=== PATIENT | male | born 1965 | race Caucasian/White ===

== ENCOUNTER 2016-08-06 19:58 | Emergency (ER) | payer OTHER ==
[2016-08-06] MEDS ORDERED: NS 500 ML IV ONE (20:11)
--- NOTE | 2016-08-06 20:13 | EDPHY ---
H & P Stated Complaint: new onset Afib @[facility], irregular HR, BP, "heart fluttering" ( resolved?) Time Seen by Provider: 08/06/16 20:11 - Personal History Current Tetanus/Diphtheria Vaccine: Yes Current Tetanus Diphtheria and Acellular Pertussis (TDAP): Yes - Medical/Surgical History Hx Asthma: No Hx Chronic Respiratory Disease: No Hx Diabetes: No Hx Cardiac Disease: No Hx Renal Disease: No Hx Cirrhosis: No Hx Alcoholism: No Hx HIV/AIDS: No Hx Splenectomy or Spleen Trauma: No Other PMH: HTN - Social History Smoking Status: Never smoked Constitutional: Initial Vital Signs Temperature (C) 36.8 C 08/06/16 20:01 Heart Rate 91 08/06/16 20:01 Respiratory Rate 16 08/06/16 20:01 Blood Pressure 131/73 H 08/06/16 20:01 O2 Sat (%) 99 08/06/16 20:01 O2 Delivery Mode Room Air Allergies/Adverse Reactions: No Known Allergies Allergy (Unverified 08/06/16 20:05) Home Medications: Medication Instructions Recorded Lisinopril 08/06/16 Medical Decision Making ED Course/Re-evaluation: CHIEF COMPLAINT: New onset atrial fibrillation HISTORY OF PRESENT ILLNESS: This patient is a 50 year old male who presents to the Emergency Department with new-onset atrial fibrillation confirmed on long chain quiller tender when seen at the Urgent Care [facility] today. He reports that he took his home monitor blood pressure this morning and it was elevated, prompting his to check his pulse which was irregular at that time. He describes a mild feeling of chest fluttering throughout today but is unsure when it started. Upon arrival, he has no complaints. Denies chest pain or lightheadedness. Medical history includes hypertension. REVIEW OF SYSTEMS: A 10 point review of systems was performed and is negative with the exception of the elements mentioned in the history of present illness. PHYSICAL EXAM: HR 91, BP 131/73, O2 Sat, 99% RR 16. Temp noted General Appearance: Alert, well hydrated, appropriate, and non-toxic appearing. Head: Atraumatic without scalp tenderness or obvious injury Eyes: Pupils equal, round, reactive to light and accommodation, EOMI, no trauma , no injection. Ears: Clear bilaterally, no perforation, normal landmarks Nose: Atraumatic, no rhinorrhea, clear. Throat: There is no erythema or exudates, no lesions, normal tonsils, mucus membranes moist. Neck: Supple, 2+ carotid upstroke, nontender, no lymphadenopathy. Respiratory: No retractions, no distress, no wheezes, and no accessory muscle use. Lungs are clear to auscultation bilaterally. Cardiovascular: Irregularly irregular with no murmurs, rubs, or gallops. Bilateral carotid, radial, dorsalis pedis, and posterior tibial pulses intact. Good capillary refill all extremities. Gastrointestinal: Abdomen is soft, nontender, non-distended, no masses, no rebound, no guarding, no peritoneal signs. Musculoskeletal: Normal active ROM of all extremities, atraumatic. Neurological: Alert, appropriate, and interactive. The patient has normal DTRs and non-focal cranial nerves, motor, sensory, and cerebellar exam. Skin: No rashes, good turgor, no nodules on palpation. Past medical history: Hypertension. Past surgical history: Denies. Family history: Father with CAD and CABG. Mother with cardiac stenting. Social history: ; is a RN. DIAGNOSTICS/PROCEDURES/CRITICAL CARE TIME: The 12 lead EKG was interpreted by myself: atrial fibrillation with ventricular rate 61-176; multiple premature complexes, ventricular and supraventricular. See hard copy and/or "tracemaster" electronic copy for interpretation. DIFFERENTIAL DIAGNOSIS: Differential diagnosis for the patient's chest flutter includes but is not limited to: arrhythmia, myocardial ischemia, or pleural inflammation. MEDICAL DECISION MAKING: This patient is a normally healthy 50 year old male who presents with new onset atrial fibrillation as confirmed on monitor at Urgent Care and here in the ED. He reports mild chest flutter but has no other complaints. Familial history is significant for CAD in mother and father. On exam, he is irregularly irregular with no murmurs, rubs, or gallops. EKG confirmed atrial fibrillation with variable ventricular rate. Will proceed with labs, consultation with cardiology, and echocardiogram prior to cardioversion given that the onset of the patient's atrial fibrillation is unknown. IV established. 500ml IV NS administered. 2020: Consultation with Dr. Jovany Mao, cardiology, who recommends the patient be administered dose of 150mg Pradaxa and 50mg PO Metoprolol. If he remains asymptomatic in the ED, Dr. Mao will treat him as an outpatient in his office tomorrow morning. I discussed this plan with the patient who is agreeable to this. Labs obtained: Chemistries are within normal ranges. Troponin is negative. NT- proBNP is mildly elevated at 652. 2129: The patient's remains in atrial fibrillation with rate improved to 90- 100. He continues to deny any symptoms. He is not short of breath, he has no chest pain. He reports no complaints. He will be road tested and sent home with instructions to follow-up with Dr. Mao tomorrow without fail. He understands that he should return to the Emergency Department immediately should he develop any symptoms of dyspnea, chest pain, diaphoresis, nausea, lightheadedness, or syncope. - Data Points Laboratory Results: Laboratory Results 08/06/16 20:30 08/06/16 20:30 08/06/16 08/06/16 20:30 20:30 WBC 6.84 10^3/uL 10^3/uL (3.80-9.50) RBC 5.25 10^6/uL 10^6/uL (4.40-6.38) Hgb 17.0 g/dL g/dL (13.7-17.5) Hct 48.7 % % (40.0-51.0) MCV 92.8 fL fL (81.5-99.8) MCH 32.4 pg pg (27.9-34.1) MCHC 34.9 g/dL g/dL (32.4-36.7) RDW 11.4 % L % (11.5-15.2) Plt Count 229 10^3/uL 10^3/uL (150-400) MPV 11.2 fL fL (8.7-11.7) Neut % (Auto) 52.7 % % (39.3-74.2) Lymph % (Auto) 38.6 % % (15.0-45.0) [place] % (Auto) 6.1 % % (4.5-13.0) Eos % (Auto) 1.6 % % (0.6-7.6) Baso % (Auto) 0.7 % % (0.3-1.7) Nucleat RBC Rel Count 0.0 % % (0.0-0.2) Absolute Neuts (auto) 3.60 10^3/uL 10^3/uL (1.70-6.50) Absolute Lymphs (auto) 2.64 10^3/uL 10^3/uL (1.00-3.00) Absolute Monos (auto) 0.42 10^3/uL 10^3/uL (0.30-0.80) Absolute Eos (auto) 0.11 10^3/uL 10^3/uL (0.03-0.40) Absolute Basos (auto) 0.05 10^3/uL 10^3/uL (0.02-0.10) Absolute Nucleated RBC 0.00 10^3/uL 10^3/uL (0-0.01) Immature Gran % 0.3 % % (0.0-1.1) Immature Gran # 0.02 10^3/uL 10^3/uL (0.00-0.10) Sodium 136 mEq/L mEq/L (134-144) Potassium 4.6 mEq/L mEq/L (3.5-5.2) Chloride 100 mEq/L mEq/L (97-110) Carbon Dioxide 24 mEq/l mEq/l (22-31) Anion Gap 12 mEq/L mEq/L (8-16) BUN 22 mg/dL mg/dL (7-23) Creatinine 1.0 mg/dL mg/dL (0.7-1.3) Estimated GFR > 60 Glucose 97 mg/dL mg/dL (70-100) Calcium 10.1 mg/dL mg/dL (8.5-10.4) Magnesium 2.0 mg/dL mg/dL (1.6-2.3) Troponin I < 0.012 ng/mL ng/mL (0-0.034) NT-Pro-B Natriuret Pep 652 pg/mL H pg/mL (0-125) Medications Given: Discontinued Medications Dabigatran (Pradaxa) 150 mg PO EDNOW ONE Stop: 08/06/16 20:23 Last Admin: 08/06/16 21:05 Dose: 150 mg Sodium Chloride (Ns) 500 mls @ 0 mls/hr IV ONCE ONE PRN Reason: As Directed Stop: 08/06/16 20:12 Last Admin: 08/06/16 20:30 Dose: 500 mls Metoprolol Succinate (Toprol Xl) 50 mg PO EDNOW ONE Stop: 08/06/16 20:25 Last Admin: 08/06/16 21:05 Dose: 25 mg Metoprolol Tartrate (Lopressor Injection) 5 mg IVP EDNOW ONE Stop: 08/06/16 20:50 Last Admin: 08/06/16 20:50 Dose: 5 mg Departure - Departure Disposition: Home, Routine, Self-Care Clinical Impression: New onset atrial fibrillation Condition: Good Instructions: A-fib (Atrial Fibrillation) (ED) Additional Instructions: 1. Follow-up with Dr. Gabriel Mao, cardiology, first thing tomorrow morning. He is aware of your case and has advised us on your treatment plan. 2. Return to the Emergency Department immediately if you experience chest pain, lightheadedness, feeling as though you may pass out, nausea or vomiting, excessive sweating, or for other serious concerns. Referrals: Jovany Mao MD [Medical Doctor] - As per Instructions Report Scribed for: Griffin Bai Report Scribed by: Pallavi Nicole Date of Report: 08/06/16 Time of Report: 20:13
--- NOTE | 2016-08-06 20:17 | CPEKG ---
Heart Rate: 128 RR Interval: 469 QRSD Interval: 80 QT Interval: 296 QTC Interval: 432 QRS [place]: 18 T Wave [place]: 20 EKG Severity - ABNORMAL ECG - EKG Impression: ATRIAL FIBRILLATION, V-RATE 61-176 Electronically Signed By: Griffin Bai 06-Aug-2016 22:18:22
[2016-08-06] MEDS ORDERED: DABIGATRAN ETEXILATE MESYL 150 MG CAP PO ONE (20:22)
[2016-08-06] MEDS ORDERED: METOPROLOL SUCCINATE XR 25 MG TAB PO ONE (20:24)
[2016-08-06 20:41] LABS: % IMMATURE GRANULYOCYTES 0.3 % (0.0-1.1); ABSOLUTE IMMATURE GRANULOCYTES 0.02 10^3/uL (0.00-0.10); ADD DIFF? NO; ADD MORPH? NO; ADD SCAN? NO; ATYPICAL LYMPHOCYTE FLAG 10 (0-99); FRAGMENT RBC FLAG 0 (0-99); HEMATOCRIT 48.7 % (40.0-51.0); LEFT SHIFT FLG 0 (0-99); LIPEMIA HEMOLYSIS FLAG 90 (0-99); MEAN CELL HEMOGLOBIN 32.4 pg (27.9-34.1); MEAN CELL HEMOGLOBIN CONCENTR. 34.9 g/dL (32.4-36.7); MEAN CELL VOLUME 92.8 fL (81.5-99.8); MEAN PLATELET VOLUME 11.2 fL (8.7-11.7); PLATELET CLUMPS FLAG 0 (0-99); PLATELET COUNT 229 10^3/uL (150-400); RED BLOOD CELL COUNT 5.25 10^6/uL (4.40-6.38); RED CELL DISTRIBUTION WIDTH 11.4 % (11.5-15.2)
[2016-08-06] MEDS ORDERED: METOPROLOL TARTRATE 5 MG/5 ML INJ IVP ONE (20:49)
[2016-08-06] MEDS ORDERED: METOPROLOL TARTRATE 5 MG/5 ML INJ ONE (20:49)
[2016-08-06 21:05] LABS: ANION GAP 12 mEq/L (8-16); CALCIUM 10.1 mg/dL (8.5-10.4); CARBON DIOXIDE 24 mEq/l (22-31); CHLORIDE 100 mEq/L (97-110); GLOMERULAR FILTRATION RATE > 60; GLUCOSE 97 mg/dL (70-100); POTASSIUM 4.6 mEq/L (3.5-5.2); SODIUM 136 mEq/L (134-144)
[2016-08-06 21:07] VITALS: PULSE 89; RESP 18
[2016-08-06 21:34] LABS: TROPONIN I < 0.012 ng/mL (0-0.034)
[2016-08-06 21:54] VITALS: BP 121/85; TEMP 97.9; O2SAT 94
== END 2016-08-06 21:59 | disposition home or self-care (01) ==
DX: I48.91 Unspecified atrial fibrillation (principal); I10 Essential (primary) hypertension
CPT/HCPCS: 96374

== ENCOUNTER 2017-11-02 16:08 | Emergency (ER) | payer OTHER ==
--- NOTE | 2017-11-02 16:33 | EDPHY ---
HPI/HX/ROS/PE/MDM Narrative: CHIEF COMPLAINT: Blurred vision in right eye HISTORY OF PRESENT ILLNESS: The patient is a 51 y/o male with history of atrial fibrillation and hypertension complaining of blurred vision in his right eye. Last night he was at a wedding in [place] and reports his eye felt normal. This morning, when he awoke his right eye felt "weird". Denies a foreign body sensation but notes blurred vision. Has been suffering from allergies and rubbing his eyes alot. He did drink alcohol last night. He flew back here and called Dr. Henderson, training and development rep, who advised him come to the ED. He denies any crusting or discharge from the eye, a sensation of a curtain falling over his eye, any flashes in the eye, any waves across his vision, getting anything in the eye, nausea, or any other symptoms. He had his vision check last year and it was borderline for needing reading glasses. He reports he was in [place] for a few weeks before going to [place]. No fever, chills, chest pain, shortness of breath, palpitations, vomiting, diarrhea, urinary complaints, headache, lightheadedness. REVIEW OF SYSTEMS: Aside from elements discussed in the HPI, a comprehensive 10-point review of systems was reviewed and is negative. PAST MEDICAL HISTORY: Atrial fibrillation, hypertension SOCIAL HISTORY: Lives in [place], , [facility] [employer] VITAL SIGNS: Reviewed by me Visual Acuity 20/100 in right eye, 20/30 in left eye. GENERAL: Well-developed, well-nourished, resting comfortably in no respiratory distress. Pleasant. HEENT: Atraumatic. EYES: Visual Acuity: noted from Nurse's notes. Focused examination of the right eye. Eyelid: No edema, erythema or swelling. Pupils: 3mm on right, 4mm on left. Round and reactive to light. EOMI Conjunctivae: Mild injection, no discharge. Cornea: Exam with fluroscein shows diffuse uptake across right eye, mild uptake across left eye. Neg sidels sign, no linear abrasions. e Anterior chamber: Normal, no hyphema or hypopyon Skin: No proptosis, no periorbital erythema or swelling, no vesicles. Pressure: 13 in left, 15 in right CARDIAC: Regular rate and rhythm, no rubs, murmurs or gallops. NEURO: Alert and oriented, grossly nonfocal. SKIN: Warm and dry, no rash. PSYCHIATRIC: Normal mentation, no agitation. ED Course: The patient presents with blurred vision in his right eye, acute onset this morning. Due to his hypertension and atrial fibrillation, his training and development rep advised him to come to the ED. On exam, his cornea shows fluorescin uptake on right corneal, slight uptake on left. VIsion diminished in right eye. 5:45 PM - I spoke with Dr. Ortega, ophthalmology, regarding this patient. Suspected diffuse corneal irritation due to rubbing, allergies, and potentially dry eye if he slept with eyes open last night. He advises eye drops and keeping eye closed as much as possible today. If his vision does not improve by morning followup with him. If he shows signs of infection use antibiotic drops and follow up with him. I informed the patient. He agrees to this course of action. MDM: Diff dx considered included corneal abrasion, corneal ulcer, conjunctivitis, lens dislocation, acute retinal artery occlusion, acute retinal vein occlusion, glaucoma, retinal detatchment, viterous hemorrhage. - Data Points Medications Given: Discontinued Medications Ofloxacin (Ocuflox 0.3% Opht Drops Prepack) [facility] Stop: 11/02/17 17:06 Last Admin: 11/02/17 17:26 Dose: 1 btl General Time Seen by Provider: 11/02/17 16:24 Initial Vital Signs: Initial Vital Signs Temperature (C) 36.7 C 11/02/17 16:13 Heart Rate 91 11/02/17 16:13 Respiratory Rate 16 11/02/17 16:13 Blood Pressure 124/98 H 11/02/17 16:13 O2 Sat (%) 95 11/02/17 16:13 O2 Delivery Mode Room Air Allergies/Adverse Reactions: No Known Allergies Allergy (Unverified 11/02/17 16:12) Home Medications: Medication Instructions Recorded Lisinopril 08/06/16 Atorvastatin Calcium 11/02/17 Levothyroxine 11/02/17 Metoprolol Tartrate 11/02/17 Pradaxa 11/02/17 Departure - Departure Disposition: Home, Routine, Self-Care Clinical Impression: Corneal abrasion Qualifiers: Encounter type: initial encounter Laterality: right Qualified Code(s): S05.01XA - Injury of conjunctiva and corneal abrasion without foreign body, right eye, initial encounter Corneal injury Qualifiers: Encounter type: initial encounter Laterality: right Qualified Code(s): S05.8X1A - Other injuries of right eye and orbit, initial encounter Condition: Good Instructions: Corneal Abrasion (ED) Additional Instructions: 1. Please use artificial tears and use as directed. Keep your eyes closed as much as possible. 2. Please call Dr. Ortega, ophthalmology, tomorrow for a follow-up appointment in 1 to 2 days if your vision does not improve. 3. If your eyes are red or crusted tomorrow, use the antibiotic eye drops as directed and follow up with Dr. Ortega. 4. Return to the emergency department for any worsening of condition. Referrals: Jeanne Ortiz MD [Primary Care Provider] - As per Instructions Khadar Ortega MD [Medical Doctor] - As per Instructions Report Scribed for: Soco Fuentes Report Scribed by: Liv Joseph Date of Report: 11/02/17 Time of Report: 17:04 Physician Review and Approval Statement: Portions of this note were transcribed by a medical office worker. I personally performed a history, physical exam, medical decision making, and confirmed accuracy of information the transcribed note.
[2017-11-02] MEDS ORDERED: OFLOXACIN 0.3% SOLN PREPACK OPHT.BTL TAKEHOME ONE (17:05)
[2017-11-02 17:27] VITALS: BP 123/79
== END 2017-11-02 17:52 | disposition home or self-care (01) ==
DX: H18.891 Other specified disorders of cornea, right eye (principal); I10 Essential (primary) hypertension

== ENCOUNTER → 2018-08-03 | Outpatient (CLI) | payer OTHER ==
[~2018-08-03] MED LIST: IOPAMIDOL (ISOVUE 370) 100 ML BTL IV ONE
== END ==
LOC: FIMAGING 15:45
PROVIDERS: ATTEND Internal Medicine Cardiovascular Disease
DX: Z01.818 Encounter for other preprocedural examination (principal); I48.91 Unspecified atrial fibrillation
CPT/HCPCS: Q9967

== ENCOUNTER 2018-08-11 07:04 | Observation (INO) | payer OTHER ==
[2018-08-11] MEDS ORDERED: NS 1,000 ML IV ONE (07:06)
--- NOTE | 2018-08-11 07:17 | PDGENHP ---
History & Physical Chief Complaint: sx afib Relevant Physical Exam: s1s2. cta. ao3 Cardiorespiratory Assessment: for misty and cb pvi ablation
[2018-08-11] MEDS ORDERED: BUPIVACAINE 0.75% 10 ML SDV ONE (07:18)
[2018-08-11] MEDS ORDERED: IOPAMIDOL (ISOVUE-300) 100 ML BTL ONE ×2 (07:18→12:54)
[2018-08-11] MEDS ORDERED: LIDOCAINE 1% 300 MG/30 ML SDV ONE (07:18)
[2018-08-11] MEDS ORDERED: HEPARIN 10,000 UNIT/10 ML MDV (1,000 UNIT/ML) ONE (07:18)
[2018-08-11] MEDS ORDERED: HEPARIN/DEXTROSE 25,000 UNIT/500 ML BAG ONE (07:18)
[2018-08-11 07:48] LABS: PLATELET COUNT 225 10^3/uL (150-400)
[2018-08-11 08:20] LABS: INR 1.09 (0.83-1.16); PROTIME(PATIENT) 13.7 SEC (12.0-15.0)
[2018-08-11] MEDS ORDERED: PROPOFOL/EMULSION 500 MG/50 ML BOTTLE IV ONE (10:41)
[2018-08-11] MEDS ORDERED: fentaNYL 100 MCG/2 ML INJ ONE (10:41)
[2018-08-11] MEDS ORDERED: MIDAZOLAM 2 MG/2 ML VIAL ONE (10:46)
[2018-08-11] MEDS ORDERED: MIDAZOLAM 2 MG/2 ML VIAL IVP ONE (10:48)
[2018-08-11] MEDS ORDERED: REMIFENTANIL HCL 1 MG VIAL ONE (10:53)
[2018-08-11] MEDS ORDERED: DEXAMETHASONE 4 MG/ML VIAL ONE (10:53)
[2018-08-11] MEDS ORDERED: ROCURONIUM 100 MG/10 ML VIAL ONE (10:53)
[2018-08-11] MEDS ORDERED: ePHEDrine SULFATE 25 MG/5 ML SYR ONE (12:07)
[2018-08-11] MEDS ORDERED: PHENYLEPHRINE HCL 100 MCG/ML SYR ONE (12:07)
[2018-08-11] MEDS ORDERED: PROTAMINE SULFATE 50 MG/5 ML VIAL IVP ONE (12:44)
[2018-08-11] MEDS ORDERED: ONDANSETRON 4 MG/2 ML VIAL ONE (13:40)
--- NOTE | 2018-08-11 13:53 | EPPROC ---
Electrophysiology Procedure Note: ELECTROPHYSIOLOGIC STUDY AND BALLOON-CATHETER MEDIATED CRYOABLATION FOR PAROXYSMAL ATRIAL FIBRILLATION Procedures performed: 90881-59 EP evaluation with RA/RV/LA pace/record, with arrhythmia induction 23664-20 EP evaluation with RA/RV pace record, insert/reposition catheter, with arrhythmia induction 90172 Atrial fibrillation ablation Intracardiac echocardiogram Transseptal puncture Fluoroscopy INDICATION: Paroxysmal atrial fibrillation PROCEDURE: The patient arrived in the Electrophysiology Laboratory in the fasting state. The right groin, left groin and right infraclavicular area were prepped and draped in the usual sterile fashion. Anesthesiologist administered general anesthesia Dr. Anahi Giordano . All catheters were placed percutaneously using the Seldinger technique and advanced into position under fluoroscopic guidance. One #7 [place]ian deflectable octapolar electrode catheter was placed in the His-bundle position via the left femoral vein (2mm spacing, IVC electrode for unipolar recordings). This catheter was placed in the coronary sinus after transseptal puncture and later placed in the SVC-R subclavian vein junction to pace the right phrenic nerve during right pulmonary vein ablation. One #8 [place]ian AcuNaV ultrasound catheter was placed in the left femoral vein and advanced into the right atrium. Programmed stimulation was performed from the right atrium, left atrium (CS) and right ventricle. There was no evidence of AV accessory pathway. Intracardiac echo evaluation of the left atrium and pulmonary veins was performed. Baseline ACT was drawn and heparin bolus was administered and heparin drip was started prior to transseptal puncture. ACT was checked every 15 minutes and maintained in the range of 350-400 seconds. One 14Fr short sheath was placed in the right femoral vein. One 8Fr SL1 sheath was advanced into the right atrium via the 14Fr short sheath. Transseptal puncture was performed under intracardiac ultrasound, fluoroscopic and hemodynamic guidance placing the sheath into the left atrium. [place] RF needle ( C0 curve) was used. The mean left atrial pressure was 21 mmHg. Pulmonary vein angiogram was done using SL1 sheath. CT angiography of pulmonary veins was done previously. There were distinct LSPV, LIPV, RSPV and RIPV. The SL1 sheath was exchanged for a 3CLogictronic Flexcath sheath using an Amplatz stiff guide wire. A 28 mm Cryoballoon catheter with a 20 mm Achieve catheter was placed via the sheath into the left atrium. Intracardiac ultrasound and PV angiograms were used to assist in placing the mapping catheter at the antrum of the pulmonary veins. All pulmonary veins were isolated successfully using cryoballoon ablation using freeze/thaw/freeze cycles at 2-3-minute intervals, with good [id number] of isolation. Coumadin ridge/Ligament of Juan region was ablated. Pre and post pulmonary vein recordings were measured on the spiral Achieve catheter to ensure complete pulmonary vein isolation. During the right-sided ablation, phrenic nerve pacing was performed to assess the phrenic nerve strength ( manually and with ICE visualization of liver movement during phrenic capture) and the phrenic nerve was intact throughout the right-sided ablation and at the end of the procedure. An esophageal temperature probe (12 electrode, Circa) was placed by the anesthesiologist at the beginning of the procedure. Esophageal temperature was monitored continuously and cryoablation was interrupted if esophageal temperature was <15 C. RIPV was not able to be isolated due to proximity to esophagus, segmental ablation of RIPV was done. ICE imaging post ablation was consistent with pre ablation imaging with no changes noted, moreover there was no left atrial/left ventricular thrombus and no pericardial effusion. The catheters were withdrawn. Protamine was given. Venous vascular access sheaths were removed in the EP lab after placing subcutaneous pursestring suture. The patient was recovered from anesthesia. There were no complications. The patient was arousable and moving all four extremities at the end of the procedure. CONCLUSIONS: 1. Paroxysmal atrial fibrillation. 2. Successful pulmonary vein isolation procedure (LSPV, LIPV, RSPV) using cryoballoon ablation. RIPV segementally ablated but could not be isolated. 3. No apparent complications. Patient Problems: Problems Problem Status Onset PAF (paroxysmal atrial fibrillation) Acute
[2018-08-11] MEDS: DABIGATRAN ETEXILATE MESYL 150 MG CAP PO SCH (20:18)
[2018-08-11] MEDS: METOPROLOL TARTRATE 25 MG TAB PO SCH (20:18)
[2018-08-11] MEDS ORDERED: PRAVASTATIN SODIUM 10 MG TAB PO SCH (21:00)
[2018-08-12 03:14] LABS: PLATELET COUNT 217 10^3/uL (150-400)
[2018-08-12 03:23] LABS: INR 1.28 (0.83-1.16); PROTIME(PATIENT) 15.5 SEC (12.0-15.0)
[2018-08-12] MEDS ORDERED: LEVOTHYROXINE 25 MCG TAB PO SCH (06:00)
[2018-08-12] MEDS: DABIGATRAN ETEXILATE MESYL 150 MG CAP PO SCH (06:37)
[2018-08-12] MEDS: METOPROLOL TARTRATE 25 MG TAB PO SCH (06:40)
[2018-08-12 08:03] VITALS: BP 121/81
[2018-08-12] MEDS ORDERED: PNEUMOCOCCAL 0.5ML VACCINE VIAL (PNEUMOVAX 23) IM ONE (08:03)
--- NOTE | 2018-08-12 09:11 | ASMTCMCOM ---
CM Note CM Note Notes: Pt is a 52 yo M who underwent DACIA and A-fib cryoablation. Pt admitted under observation. Lives with supportive . No therapies ordered, will likely discharge independently. CM available if needs arise. Plan: independent Date Signed: 08/12/2018 09:11 AM Electronically Signed By:KELLEN Gonzalez
[2018-08-12] MEDS ORDERED: KETOROLAC 15 MG/1 ML SDV IVP ONE (10:07)
--- NOTE | 2018-08-12 10:10 | ECHO ---
[email or web address] [address] [address] Main: [phone] Echocardiography Examination Transthoracic Name: TORSTEN BRAVO MR#: [id number] Study Date: 08/12/2018 Study Time: 08:27 AM Date of : 1965 Age: 52 year(s) Height: 182.9 cm (72 in.) Weight: 98.88 kg (218 lb.) BSA: 2.21 m2 Gender: Male Examination: Echo Contrast: Image Quality: Adequate Rhythm: Heart Rate: BP: 121 mmHg/81 mmHg Indication: F/U Post EP Study Procedure Staff Referring Physician: Technician Semiconductor Development: Alexia Núñez [facility] Reading Physician: Khadar Henderson MD Requesting Provider: Ordering Physician: Spencer Light MD Indication: F/U Post EP Study Measurements Chambers AV/MV Label Value Normal Value Label Value Normal Value IVSd, 2D 0.9 cm (0.6cm - 1.1cm) AV PGmean 3 mmHg LVDd, 2D 4.8 cm (4.2cm - 5.9cm) CELV[place]AND D (continuity eq. 2.2 cm2 LVDs, 2D 3.3 cm (2.1cm - 4cm) VTI) LVEF, 2D 60 % (54% - 74%) MV A Vmax 0.25 m/s LVEF, BP 52 % (55% - 70%) MV DT 155 ms LVOT PGmean 2 mmHg MV E' lateral 0.12 m/s LVOT Vmean 0.62 m/s MV E' mean 0.1 m/s LVOTd 1.9 cm (1.9cm - 2.1cm) MV E' septal 0.09 m/s LVPWd, 2D 1 cm (0.6cm - 1cm) MV E Vmax 1.07 m/s RVDd, 2D 3.5 cm (1.9cm - 3.8cm) MV E/A 4.28 LA Volume, BP 55 ml (18ml - 58ml) MV E/E' lateral 8.8 LADs, 2D 4 cm (3cm - 4cm) MV E/E' mean 10.19 LAESV index, BP 24.9 ml/m2 MV E/E' septal 12.3 (0.5 - 1.7) RA Area 17.9 cm2 MV PHT 0.05 s Additional Vessels MV PHT 45 ms Label Value Normal Value MVA PHT 4.9 cm2 AoAsc 2.4 cm TV/PV AoRoot, 2D 2.7 cm (1.4cm - 2.6cm) Label Value Normal Value IVC 2.3 cm (1.2cm - 2.3cm) RA Pressure 10 mmHg Patient: TORSTEN BRAVO Study Date: 08/12/2018 Page 1 of 3 08:27 AM RVSP 37 mmHg TR Pmax 27 mmHg TR Vmax 2.62 m/s PV PGmax 4 mmHg PV Vmax, Caliper 0.95 m/s (0.6m/s - 0.9m/s) Conclusions Left Ventricle: The EF is visually estimated to be 55 %. Left ventricular diastolic function parameters are normal. Right Ventricle: Right ventricular systolic function is normal. Left Atrium: The left atrium is normal in size. Right Atrium: The right atrium is normal in size. Tricuspid Valve: Right Ventricular systolic pressure is measured at 37 mmHg. Pulmonary artery pressure is mildly increased. Pericardium: No pericardial effusion. Findings Left Ventricle: Left ventricle is normal in size. Normal global systolic left ventricular function. The EF is visually estimated to be 55 %. Left ventricle wall thickness is normal. There are no regional wall motion abnormalities. Left ventricular diastolic function parameters are normal. Right Ventricle: Normal size right ventricle. Right ventricular systolic function is normal. Left Atrium: The left atrium is normal in size. Right Atrium: The right atrium is normal in size. Mitral Valve: Mitral valve appears structurally normal. Mild mitral regurgitation. No mitral valve stenosis. Aortic Valve: Aortic leaflets are structurally normal. No significant aortic valve regurgitation. There is no aortic stenosis. Tricuspid Valve: Tricuspid valve leaflets are structurally normal. Mild tricuspid regurgitation. No tricuspid valve stenosis. Right Ventricular systolic pressure is measured at 37 mmHg. Pulmonary artery pressure is mildly increased. Pulmonic Valve: Pulmonic leaflets are structurally normal. Trivial pulmonic valve regurgitation is present. There is no pulmonic valve stenosis. Aorta: The aortic root size in 2D measures 2.7 cm. The ascending aorta measures 2.4 cm. Aorta Measurements AoRoot, 2D is 2.7 cm. Patient: TORSTEN BRAVO Study Date: 08/12/2018 Page 2 of 3 08:27 AM IVC: The IVC measures 2.3 cm. The inferior vena cava is mildly dilated. IVC Measurements IVC is 2.3 cm. Pericardium: No pericardial effusion. Exam Details Procedure Ordered: Echo Procedure Status: Routine study Image Quality: Adequate Facility Location: Cardiac Echo 1 (No Signature Object) Patient: TORSTEN BRAVO Study Date: 08/12/2018 Page 3 of 3 08:27 AM [id number]
--- NOTE | 2018-08-12 11:45 | ASMTDCNOTE ---
Case Management Discharge Discharge Order Complete? Answers: Yes Patient to Obtain Answers: via Family Medications Transportation Arranged Answers: Family/Friends Discharge Comments Notes: Pt is being discharge independently, no CM needs identified. Family to transport. Pt will follow-up in outpatient as indicated. No CM needs identified. Date Signed: 08/12/2018 11:45 AM Electronically Signed By:KELLEN Gonzalez
--- NOTE | 2018-08-12 11:46 | GDS ---
[f rep st] DISCHARGE SUMMARY SUPERVISING CONTRACT ACCOUNTANT: Spencer Light MD. ADMISSION DIAGNOSIS: Paroxysmal atrial fibrillation. DISCHARGE DIAGNOSIS: Paroxysmal atrial fibrillation status post cryoballoon pulmonary vein isolation. PROCEDURES PERFORMED DURING HOSPITALIZATION: 1. Electrocardiogram. 2. Electrophysiology study. 3. Cryoballoon pulmonary vein isolation. 4. Echocardiogram HOSPITAL COURSE: Patient presented 08/11/2018 for an atrial fibrillation ablation in the setting of increasingly frequent and symptomatic episodes of persistent atrial fibrillation. He underwent successful cryoballoon pulmonary vein isolation of his left superior and inferior pulmonary veins and his right superior pulmonary vein. His right inferior pulmonary vein was segmentally ablated but could not be isolated. He had no intra-procedure complications and he has done very well in the postprocedure setting. He is appropriate and stable for discharge home today. CURRENT PHYSICAL EXAMINATION: GENERAL: Alert and oriented x4. No apparent distress. VITAL SIGNS: Blood pressure 121/81, heart rate 53, respiratory rate 16, SpO2 of 96% on room air. Temp 36.8 degrees Celsius. RESPIRATORY: Lungs are clear to auscultation without adventitious breath sounds. CARDIAC: Normal S1, S2. No S3, S4. Rhythm is regular. ABDOMEN: Normoactive bowel sounds times all 4 quadrants. No masses or tenderness. Soft to palpation. SKIN: [place], warm, dry without cyanosis, clubbing, or peripheral edema. EXTREMITIES: Bilateral pursestring sutures removed intact without evidence of hematoma, redness, oozing, swelling, or warmth. Pulses are 2+ bilaterally. No edema. LABORATORY STUDIES: Drawn today. CBC and BMP are relatively stable compared to preprocedure. Troponin is 4.31; elevated troponin is to be expected in the postprocedure setting. PROCEDURES: Electrophysiology study and atrial fibrillation ablation as mentioned above. Echocardiogram this morning demonstrates left ventricular ejection fraction 55%, RVSP 37 mmHg, and no evidence of pericardial effusion or wall motion abnormalities. Electrocardiogram this morning demonstrates normal sinus rhythm without new ST-T wave or [place] interval abnormalities. DISCHARGE DISPOSITION: Patient will be discharged home in stable condition. He is under activity restrictions as below. DISCHARGE MEDICATIONS: Please see discharge medication reconciliation sheet for full details. Please note that patient has been restarted on his Pradaxa 6 hours post procedure and he will not miss any doses of his anticoagulant for 3 months post procedure. He will continue his omeprazole for GI prophylaxis for 6 weeks post procedure. DISCHARGE INSTRUCTIONS: Post-atrial fibrillation ablation instructions reviewed with patient and his in detail. 1. We discussed activity restrictions including lifting no more than 10 pounds and avoidance of submerged bathing for 10 days. 2. He will get up and walk around every 45 minutes for 45 days. 3. He will avoid unpressurized air travel or scuba diving for the next 6 months , and he will present to our clinic for an echocardiogram prior to engaging either of these activities. 4. We reviewed bleeding precautions, medication compliance, monitoring for signs and symptoms of infection, monitoring for atrioesophageal fistula, and monitoring for sustained arrhythmia. At the time of discharge, the patient and his verbalized understanding regarding all discharge instructions without questions or concerns. He has a followup visit scheduled in 3 weeks, and he will contact [facility] if he experiences in any new or concerning symptoms prior to his upcoming visit. Time spent on discharge greater than 30 minutes. /[id number]/MODL MTDD
--- NOTE | 2018-08-12 11:46 | ASMTLACE ---
LACE Length of stay for Answers: Less than 1 day current admission Acuity / Level of Answers: No Care: Did the patient have an inpatient admission? Comorbidities - select Answers: Other Notes: Afib all that apply # of Emergency department Answers: 0 visits in the last 6 months Score: 1 Date Signed: 08/12/2018 11:46 AM Electronically Signed By:KELLEN Gonzalez
--- NOTE | 2018-08-13 09:47 | CPEKG ---
Test Reason : OPEN Blood Pressure : / mmHG Vent. Rate : 158 BPM Atrial Rate : 208 BPM P-R Int : 066 ms QRS Dur : 081 ms QT Int : 298 ms P-R-T Axes : 181 -39 -41 degrees QTc Int : 483 ms Atrial fibrillation Left axis deviation Repolarization abnormality, prob rate related Borderline prolonged QT interval Confirmed by Marco Jacobsen ([id number]) on 08/13/2018 9:47:27 AM Referred By: Spencer Light Confirmed By:Marco Jacobsen
--- NOTE | 2018-08-13 09:56 | CPEKG ---
Test Reason : OPEN Blood Pressure : / mmHG Vent. Rate : 092 BPM Atrial Rate : 091 BPM P-R Int : 162 ms QRS Dur : 089 ms QT Int : 371 ms P-R-T Axes : 054 055 012 degrees QTc Int : 459 ms Sinus arrhythmia Low voltage, extremity leads sinus rhythm has replaced atrial fibrillation on prior Confirmed by Marco Jacobsen ([id number]) on 08/13/2018 9:55:17 AM Referred By: Spencer Light Confirmed By:Marco Jacobsen
--- NOTE | 2018-08-13 10:36 | CPEKG ---
Test Reason : OPEN Blood Pressure : / mmHG Vent. Rate : 054 BPM Atrial Rate : 054 BPM P-R Int : 163 ms QRS Dur : 090 ms QT Int : 483 ms P-R-T Axes : 067 037 024 degrees QTc Int : 458 ms Sinus rhythm Confirmed by Marco Jacobsen ([id number]) on 08/13/2018 10:35:51 AM Referred By: Spencer Light Confirmed By:Marco Jacobsen
--- NOTE | 2018-08-14 08:07 | POSTANESTH ---
Post Anesthetic Evaluation Cardiovascular Status: Normal, Stable Respiratory Status: Normal, Stable Level of Consciousness/Mental Status: Can Participate in Eval Pain Control: Adequate, Prn Tx Ordered Nausea/Vomiting Control: Adequate, Prn Tx Ordered Complications Possibly Related to Anesthesia: None Noted
== END 2018-08-12 12:10 | disposition home or self-care (01) ==
LOC: FCATH 07:04 → INTOOBSV 14:04 → F2N 14:04
PROVIDERS: ADMIT Internal Medicine Cardiovascular Disease; ATTEND Internal Medicine Cardiovascular Disease
PROC: 5A2204Z Restoration of Cardiac Rhythm, Single (ICD-10-PCS; principal; 2018-08-11)
PROC: 02K83ZZ Map Conduction Mechanism, Percutaneous Approach (ICD-10-PCS; principal; 2018-08-11)
PROC: B246YZZ Ultrasonography of Right and Left Heart using Other Contrast (ICD-10-PCS; principal; 2018-08-11)
PROC: 025S3ZZ Destruction of Right Pulmonary Vein, Percutaneous Approach (ICD-10-PCS; principal; 2018-08-11)
PROC: 025T3ZZ Destruction of Left Pulmonary Vein, Percutaneous Approach (ICD-10-PCS; principal; 2018-08-11)
DX: I48.0 Paroxysmal atrial fibrillation (principal); Z23 Encounter for immunization; I10 Essential (primary) hypertension; E78.5 Hyperlipidemia, unspecified
CPT/HCPCS: 90471; 92960; 93005; 93306; 93312; 93613; 93656; 93662; C1893; G0378; C1730; C1731; C1732; C1733; C1759; C1766; G0009; J1100; J1644; J1885; J2250; J2370; J2405; J2704; J2720; J3010; Q9967